=== PATIENT | female | born 1960 | race Caucasian/White ===

== ENCOUNTER → 2016-12-30 | Outpatient (CLI) | payer MEDICARE ==
[2016-12-30 12:47] LABS: ALT 29 U/L (9-52); AST 33 U/L (14-36); Alkaline Phosphatase 169 U/L (38-126); Anion Gap 15 mmol/L; Blood Urea Nitrogen 25 mg/dL (7-17); Calcium 10.1 mg/dL (8.4-10.2); Carbon Dioxide 19 mmol/L (22-30); Chloride 104 mmol/L (98-107); Glucose 87 mg/dL (74-99); Non-African American GFR(MDRD) >60 (>60 ml/min/1.73 sqM); Potassium 4.9 mmol/L (3.5-5.1); Sodium 138 mmol/L (137-145); Total Bilirubin 1.1 mg/dL (0.2-1.3); Total Protein 8.1 g/dL (6.3-8.2)
--- NOTE | 2016-12-31 10:09 | MM ---
Reason for exam: screening (asymptomatic). Last mammogram was performed 1 year and 1 month ago. History: Patient is postmenopausal and has history of other cancer at age 53. Physical Findings: A clinical breast exam by your physician is recommended on an annual basis and results should be correlated with mammographic findings. MG 3D Screening Mammo W/Cad Bilateral CC and MLO view(s) were taken. Prior study comparison: December 03, 2015, bilateral MG 3d screening mammo w/cad. August 09, 2014, bilateral MG screening mammo w CAD. The breast tissue is heterogeneously dense. This may lower the sensitivity of mammography. Finding: There is a 4 mm round mass in the upper outer quadrant, anterior position of the right breast. There is a chronic nodularity in the left breast that has decreased in size. There is no discrete abnormality. New finding since December 03, 2015. ASSESSMENT: Incomplete: need additional imaging evaluation, BI-RAD 0 RECOMMENDATION: Ultrasound of the right breast. [facility] will attempt to contact patient to return for ultrasound.
== END | disposition home or self-care (01) ==
LOC: RADMAMWWP 11:44
PROVIDERS: ATTEND Family Medicine
DX: Z12.31 Encounter for screening mammogram for malignant neoplasm of breast (principal); E87.6 Hypokalemia; R73.09 Other abnormal glucose
CPT/HCPCS: 86316; 80053; 77063; G0202

== ENCOUNTER → 2017-01-08 | Outpatient (CLI) | payer MEDICARE ==
--- NOTE | 2017-01-08 09:32 | USB ---
Reason for exam: additional evaluation requested from abnormal screening. History: Patient is postmenopausal and has history of other cancer at age 53. Physical Findings: Nurse did not find any significant physical abnormalities on exam. US Breast Workup Limited RT Right breast ultrasound demonstrates a 4mm oval, cystic lesion at 11 o'clock. These results were verbally communicated with the patient and result sheet given to the patient on 01/08/17. ASSESSMENT: Benign, BI-RAD 2 RECOMMENDATION: Return to routine screening mammogram schedule for both breasts.
== END | disposition home or self-care (01) ==
LOC: RADUSWWP 08:00
PROVIDERS: ATTEND Family Medicine
DX: R92.8 Other abnormal and inconclusive findings on diagnostic imaging of breast (principal)

== ENCOUNTER 2017-01-15 05:53 | Inpatient (IN) | payer MEDICARE ==
[2017-01-15 07:30] VITALS: RESP 18
[2017-01-15] MEDS ORDERED: SODIUM CHLORIDE 0.9% 1,000 ML IV ONE (07:31)
[2017-01-15] MEDS ORDERED: HYDROmorphone 1 MG/ML 1 ML SYRINGE ONE (07:54)
[2017-01-15] MEDS ORDERED: HYDROmorphone 1 MG/ML 1 ML SYRINGE IVP STA (07:59)
[2017-01-15] MEDS ORDERED: ATORVASTATIN 80 MG TAB PO STA (08:03)
[2017-01-15] MEDS ORDERED: ASPIRIN 325 MG TAB PO STA (08:03)
[2017-01-15] MEDS ORDERED: NITROGLYCERIN SL TABS 0.4 MG TAB SUBLINGUAL PRN (08:03)
[2017-01-15] MEDS ORDERED: ALPRAZolam 0.5 MG TAB PO PRN (08:03)
[2017-01-15] MEDS ORDERED: ALPRAZolam 0.25 MG TAB PO PRN (08:03)
[2017-01-15] MEDS ORDERED: MIDAZOLAM 2 MG/2 ML VIAL IVP ONE (08:22)
[2017-01-15] MEDS: LIDOCAINE 2% INJ 20 MG/ML SQ ONE ×2 (08:33→08:38)
[2017-01-15] MEDS ORDERED: VERAPAMIL SYRINGE (5 MG/10 ML) INTRAARTER ONE (08:35)
[2017-01-15] MEDS ORDERED: RX INFO: IV CONTRAST WAS GIVEN 1 EACH MISC MISCELLANE PRN (08:53)
[2017-01-15] MEDS ORDERED: IOHEXOL 350 MG/ML 100 ML BOTTLE INJ ONE (08:55)
[2017-01-15] MEDS ORDERED: SODIUM CHLORIDE 0.9% 1,000 ML IV SCH (09:00)
--- NOTE | 2017-01-15 09:15 | LTR ---
January 15, 2017 VARGHESE IRBY MD RE: Alysha Marie Dear Rony: Ms. Alysha Marie underwent a heart catheterization, which showed normal coronary angiogram. I want to thank you for allowing us to participate in her care and please do not hesitate to call if you have any questions or concerns. Sincerely, NARCISO PRATHER MD
--- NOTE | 2017-01-15 09:27 | CC ---
DATE OF SERVICE: 01/15/2017 PERFORMING PHYSICIAN: Ashutosh Brown M.D., Junior Graphic Designer. PROCEDURE PERFORMED: 1. Selective right and left coronary angiogram. 2. Left heart catheterization. INDICATION: This is a pleasant 56-year-old female who has hypertension and Crohn's disease, who presented to the hospital with shortness of breath and she was ruled in for acute non-ST elevation myocardial infarction which she underwent. She was transferred to for heart catheterization. APPROACH: 1. Right radial artery. 2. Right common femoral artery. COMPLICATIONS: None. LEVEL OF SEDATION: Moderate with a sedation length of 30 minutes. PROCEDURE DESCRIPTION: After obtaining informed consent, the patient was to the Cardiac Final [employer]. Initially, the right radial artery was cannulated using micropuncture technique. The micropuncture wire passed easily, then I advanced a 6 [place] sheath in the right radial artery. I was unable to advance the sheath all the way to the hub because the patient was having severe pain, which is likely because of severe spasm and small diameter artery. At that point, I decided to abort the radial axis and go from the right common femoral artery. So, the right common femoral artery was cannulated using micropuncture technique. The micropuncture wire passed easily, then I placed 6 [place] sheath in the right common femoral artery. Subsequently, I did selective right and left coronary angiogram using JR4 and JL 3.5 catheters. Then I did left heart catheterization using a 6 [place] pigtail catheter. The procedure was completed without any complication. SELECTIVE CORONARY ANGIOGRAM: 1. The right coronary artery is a large-caliber vessel and it is a dominant vessel and it is angiographically normal. It bifurcates into PDA and PLV branches; both are angiographically normal. 2. The left main is angiographically normal. It bifurcates into the left circumflex, ramus intermedius, and left anterior descending artery. The left circumflex is a large-caliber vessel and it is a nondominant vessel and is angiographically normal. 3. The ramus intermedius is a small to medium caliber vessel and seems to be angiographically normal. 4. The left anterior descending artery: The proximal LAD is angiographically normal. The mid LAD is normal and gives rise into a large diagonal branch, which seems to be angiographically normal and the LAD continues as a small to medium caliber vessel after that. HEMODYNAMICS: The left ventricular end-diastolic pressure was 4 mmHg and no gradient was identified across the aortic valve. CONCLUSION: 1. Normal coronary angiogram. 2. Normal left ventricular end-diastolic pressure. POSTPROCEDURE MANAGEMENT: Medical treatment.
[2017-01-15] MEDS: SODIUM CHLORIDE 0.9% 1,000 ML in EMPTY BAG 1 BAG IV ONE ×2 (10:46→10:47)
[2017-01-15] MEDS ORDERED: METOPROLOL SUCCINATE (ER) 50 MG TAB.ER.24H PO SCH (11:30)
[2017-01-15] MEDS ORDERED: HYDROcodone/APAP 7.5-325MG 1 EACH TAB PO PRN (11:46)
[2017-01-15] MEDS ORDERED: TAMSULOSIN 0.4 MG CAP.ER.24H PO SCH (12:00)
--- NOTE | 2017-01-15 13:36 | P.HPIM ---
History of Present Illness H&P Date: 01/15/17 Chief Complaint: Kidney pain HISTORY AND PHYSICAL AND DISCHARGE SUMMARY: This is a 56-year-old female patient of Dr. Rony Benitez with a past medical history for Crohn's disease status post ileostomy, hypertension, umbilical hernia. She presented to [facility] with severe recurrent low back pain and vomiting. She was found have elevated troponins and elevated lactate and patient was admitted since Thursday at [facility]. She was seen in consultation by cardiology and patient was transferred to [facility] to undergo heart catheterization. While at [facility], she was found have kidney stone [place] in for the back pain. She states she has had kidney stones before and she becomes dehydrated and makes it worse. She states she has had 4 admissions since May for the same thing. Regarding Crohn's disease, patient was on Remicade in the past and has undergone 4 surgeries with a total removal of 20 inches of small intestine and a small amount of the large intestine all done at [facility]. Patient is now on Humira. She does have plans to follow-up in February [address] Burciaga at [facility] to look at reversal of the ileostomy. Patient underwent heart catheterization initially attempted the right radial artery and then completed and the right femoral artery which did not show any significant stenosis. Patient will be discharged home later today in stable condition. Review of Systems All systems: negative Constitutional: Denies chills, Denies fever Eyes: denies blurred vision, denies pain Ears, nose, mouth and throat: Denies headache, Denies sore throat Cardiovascular: Denies chest pain, Denies shortness of breath Respiratory: Denies cough Gastrointestinal: Reports nausea, Reports vomiting, Denies abdominal pain, Denies diarrhea Genitourinary: Reports kidney stones, Denies dysuria, Denies hematuria Musculoskeletal: Reports low back pain, Denies myalgias Integumentary: Denies pruritus, Denies rash Neurological: Denies numbness, Denies weakness Psychiatric: Denies anxiety, Denies depression Endocrine: Denies fatigue, Denies weight change Past Medical History Past Medical History: GERD/Reflux, Hypertension, Pneumonia, Renal Disease, Seizure Disorder Additional Past Medical History / Comment(s): Crohn's disease-autoimmune dx, hx of epilepsy as a child, nothing now, L side nephrolithiasis-current, chronic low back pain, umbilical hernias x 2. History of Any Multi-Drug Resistant Organisms: None Reported Past Surgical History: Appendectomy, Bowel Resection, Section, Cholecystectomy, Heart Catheterization Additional Past Surgical History / Comment(s): 01/15/17 Cardiac cath-normal. Other surgical hx: bowel resections x 4, egds and colonoscopies, ileostomy, L cataract removal Past Anesthesia/Blood Transfusion Reactions: No Reported Reaction Past Psychological History: No Psychological Hx Reported, Depression Additional Psychological History / Comment(s): Pt resides with her spouse. She is independent. Smoking Status: Never smoker Past Alcohol Use History: None Reported Additional Past Alcohol Use History / Comment(s): Patient denies history of tobacco use. She does not drink alcohol. She's been for over 30 years. She has worked in a grocery store. Past Drug Use History: Marijuana Additional Drug Use History / Comment(s): Pt has medical marijuana. She smokes 2 joints a day. - Past Family History Father Family Medical History: Cancer Additional Family Medical History / Comment(s): Father in his 70s and had 4 types of cancer. Brother(s) Family Medical History: Diabetes Mellitus, Hypertension Sister(s) Family Medical History: Diabetes Mellitus, Hypertension Additional Family Medical History / Comment(s): She has a sister that from Hodgkin's. Mother Additional Family Medical History / Comment(s): Mother has history of peripheral artery disease. Medications and Allergies Home Medications Medication Instructions Recorded Confirmed Type Metoprolol Succinate (ER) [Toprol 50 mg PO DAILY 06/29/16 01/15/17 History XL] Adalimumab [Humira Pen] 80 mg SQ [id number] 01/15/17 01/15/17 History Ascorbic Acid [Vitamin C] 1,000 mg PO DAILY 01/15/17 01/15/17 History Curcumin 1 cap PO DAILY 01/15/17 01/15/17 History Qvar (Unknown Dose) 1 puff TOPICAL DIRECTED PRN 01/15/17 History Vitamin D3 Liquid 5,000 unit PO DAILY 01/15/17 01/15/17 History Vitamin E 1,000 unit PO DAILY 01/15/17 01/15/17 History Allergies Allergy/AdvReac Type Severity Reaction Status Date / Time latex AdvReac Unknown Itching Verified 06/29/16 13:08 Physical Exam Vitals: Vital Signs Temp Pulse Pulse Resp BP BP Pulse Ox 01/15/17 10:40 81 18 115/58 97 01/15/17 10:25 78 18 120/67 97 01/15/17 10:10 80 18 123/74 97 01/15/17 09:45 76 18 135/73 98 01/15/17 09:30 98.0 F 78 18 133/73 98 01/15/17 07:28 98.0 F 79 18 136/78 144/79 98 Intake and Output 01/14/17 01/15/17 01/15/17 22:59 06:59 14:59 Intake Total 50 Balance 50 Intake: IV 50 Other: Weight 50.802 kg Patient Weight 01/16/17 06:59 Weight 50.802 kg Gen: This is a 56-year-old female. She appears to be in no acute distress. HEENT: Head is atraumatic, normocephalic. Pupils equal, round. Sclerae is anicteric. NECK: Supple. No JVD. No lymphadenopathy. No thyromegaly. LUNGS: Clear to auscultation. No wheezes or rhonchi. No intercostal retractions. HEART: Regular rate and rhythm. No murmur. ABDOMEN: Soft. Bowel sounds are present. No masses. No tenderness. Ileostomy right lower quadrant. EXTREMITIES: No pedal edema. No calf tenderness. Right groin without hematoma. NEUROLOGICAL: Patient is awake, alert and oriented x3. Cranial nerves 2 through 12 are grossly intact. Assessment and Plan Plan: 1. Non-ST elevated myocardial infarction with normal heart catheterization. 2. Crohn's disease and history of ileostomy with plan for reversal. Patient is on chronic Humira. 3. Chronic kidney disease stage III. 4. Daily marijuana use, stable. 5. Hypertension. Continue metoprolol. Discharge plan: Return home. Impression and plan of care have been directed as dictated by the signing physician. Stacey Merino nurse practitioner acting as scribe for signing physician. Cc: Dr. Jeff Benitez Time with Patient: Greater than 30
[2017-01-15 13:55] LABS: Anion Gap 13 mmol/L; Blood Urea Nitrogen 25 mg/dL (7-17); Calcium 9.6 mg/dL (8.4-10.2); Carbon Dioxide 27 mmol/L (22-30); Chloride 97 mmol/L (98-107); Glucose 148 mg/dL (74-99); Non-African American GFR(MDRD) >60 (>60 ml/min/1.73 sqM); Potassium 4.1 mmol/L (3.5-5.1); Sodium 137 mmol/L (137-145)
[2017-01-15 16:09] VITALS: BP 128/85; PULSE 78; TEMP 98.5
[2017-01-16] MEDS ORDERED: NON-FORMULARY DRUG (Vitamin E [Vitamin E] 1,000 UNIT) PO SCH (09:00)
[2017-01-16] MEDS ORDERED: ASCORBIC ACID 500 MG TAB PO SCH (12:00)
[2017-01-16] MEDS ORDERED: CHOLECALCIFEROL 1,000 UNIT TAB PO SCH (12:00)
== END 2017-01-15 16:27 | disposition home or self-care (01) | DRG 281 ==
LOC: 6SEL 07:37
PROVIDERS: ADMIT Internal Medicine; ATTEND Internal Medicine
PROC: B2111ZZ Fluoroscopy of Multiple Coronary Arteries using Low Osmolar Contrast (ICD-10-PCS; 2017-01-15)
PROC: 4A023N7 Measurement of Cardiac Sampling and Pressure, Left Heart, Percutaneous Approach (ICD-10-PCS; principal; 2017-01-15 08:00)
DX: I21.4 Non-ST elevation (NSTEMI) myocardial infarction (principal); K50.90 Crohn's disease, unspecified, without complications; N18.3 Chronic kidney disease, stage 3 (moderate); I12.9 Hypertensive chronic kidney disease with stage 1 through stage 4 chronic kidney disease, or unspecified chronic kidney disease; Z93.2 Ileostomy status; N20.0 Calculus of kidney; F12.90 Cannabis use, unspecified, uncomplicated; K21.9 Gastro-esophageal reflux disease without esophagitis; G40.909 Epilepsy, unspecified, not intractable, without status epilepticus; Z79.899 Other long term (current) drug therapy; Z82.49 Family history of ischemic heart disease and other diseases of the circulatory system
CPT/HCPCS: 80048; 93458

== ENCOUNTER 2017-06-01 04:35 | Emergency (ER) | payer MEDICARE ==
[2017-06-01] MEDS ORDERED: ONDANSETRON 4 MG/2 ML VIAL IVP STA (05:07)
[2017-06-01] MEDS ORDERED: SODIUM CHLORIDE 0.9% 1,000 ML IV STA (05:07)
[2017-06-01] MEDS ORDERED: MORPHINE SULFATE 4 MG/ML SYRINGE IV STA (05:07)
[2017-06-01] MEDS ORDERED: HYDROmorphone 1 MG/ML 1 ML SYRINGE IVP STA ×2 (05:09→06:46)
[2017-06-01 05:17] LABS: Basophils # (A) 0.1 k/uL (0-0.2); Basophils % (A) 0 %; CH 28.5; CHCM 32.4; Eosinophils # (A) 0.1 k/uL (0-0.7); Eosinophils % (A) 0 %; HCT 46.5 % (34.0-46.0); HDW 2.39; HGB 15.4 gm/dL (11.4-16.0); Luc % (Auto) 1; Lymphocytes # (A) 1.3 k/uL (1.0-4.8); Lymphocytes % (A) 8 %; MCH 29.3 pg (25.0-35.0); MCHC 33.1 g/dL (31.0-37.0); MCV 88.5 fL (80.0-100.0); Mean Platelet Volume 7.8; Monocytes # (A) 0.7 k/uL (0-1.0); Monocytes % (A) 4 %; Neutrophils # (A) 14.6 k/uL (1.3-7.7); Neutrophils % (A) 86 %; RBC 5.26 m/uL (3.80-5.40); RDW 14.3 % (11.5-15.5); WBC 16.9 k/uL (3.8-10.6)
[2017-06-01 05:28] LABS: ALT 35 U/L (9-52); AST 43 U/L (14-36); Alkaline Phosphatase 235 U/L (38-126); Amylase 275 U/L (30-110); Anion Gap 24 mmol/L; Blood Urea Nitrogen 16 mg/dL (7-17); Calcium 10.6 mg/dL (8.4-10.2); Carbon Dioxide 17 mmol/L (22-30); Chloride 104 mmol/L (98-107); Glucose 225 mg/dL (74-99); Non-African American GFR(MDRD) >60 (>60 ml/min/1.73 sqM); Sodium 145 mmol/L (137-145); Total Bilirubin 1.4 mg/dL (0.2-1.3); Total Protein 9.3 g/dL (6.3-8.2)
--- NOTE | 2017-06-01 05:38 | XR ---
EXAM: XR Abdomen Complete With XR Chest CLINICAL HISTORY: Reason: Abdominal pain, nausea/vomiting. History of Crohn's disease, bowel resections, ileostomy, kidney stones in left kidney. TECHNIQUE: Frontal view of the chest, frontal view of the abdomen/pelvis and upright view of the abdomen. COMPARISON: 06/29/2016 FINDINGS: Lungs/pleura: Stable probable mild right pleural thickening in the costophrenic angle. Similar mild scarring at right lung base. No focal consolidation. No pneumothorax. Heart/mediastinum: Normal. No cardiomegaly. Soft tissues: Unremarkable. Bones: No acute fracture. Abdomen: Cholecystectomy clips in the right upper quadrant. Stable calcifications in the region of the left kidney which likely represents renal stones. Paucity of bowel gas. No abnormal gaseous dilatation of bowel to suggest obstruction. No free air. IMPRESSION: 1. No acute cardiopulmonary disease. 2. No evidence of bowel obstruction or free air. 3. Stable left nephrolithiasis.
[2017-06-01 06:10] VITALS: RESP 16
--- NOTE | 2017-06-01 06:11 | ED ---
General Adult HPI - General Chief complaint: Nausea/Vomiting/Diarrhea Stated complaint: FEVER? Time Seen by Provider: 06/01/17 05:01 Source: patient, family, RN notes reviewed Mode of arrival: wheelchair Limitations: no limitations - History of Present Illness Initial comments: 56-year-old female with past medical history of Crohn's, currently on Humira presenting with 1 day history of generalized crampy abdominal pain. Patient reports she had 5 episodes of nausea vomiting throughout the day today as well as 2 episodes of diarrhea. Patient states his subjective fever. Denies dysuria. Denies chest pain or shortness of breath. Patient is not currently on any pain medication. She had a bowel resection with ileostomy performed within the last year, this was reversed in February of this year. She has been doing well since his surgery. - Related Data Home Medications Medication Instructions Recorded Confirmed Metoprolol Succinate (ER) [Toprol 50 mg PO DAILY 06/29/16 04/24/17 XL] Adalimumab [Humira Pen] 80 mg SQ [id number] 01/15/17 04/24/17 Ascorbic Acid [Vitamin C] 1,000 mg PO DAILY 01/15/17 04/24/17 Curcumin 1 cap PO DAILY 01/15/17 04/24/17 Qvar (Unknown Dose) 1 puff TOPICAL DIRECTED PRN 01/15/17 04/24/17 Vitamin D3 Liquid 5,000 unit PO DAILY 01/15/17 04/24/17 Vitamin E 1,000 unit PO DAILY 01/15/17 04/24/17 Previous Rx's Medication Instructions Recorded HYDROcodone/APAP 7.5-325MG [[place] 1 tab PO Q4H PRN #60 tab 01/15/17 7.5-325] Tamsulosin [Flomax] 0.4 mg PO DAILY #30 cap 01/15/17 HYDROcodone/APAP 5-325MG [[place] 1 tab PO Q6HR PRN #12 tab 06/01/17 5-325] Ondansetron Odt [Zofran Odt] 4 mg PO Q8HR PRN #10 tab 06/01/17 Allergies Allergy/AdvReac Type Severity Reaction Status Date / Time latex AdvReac Unknown Itching Verified 06/01/17 04:45 Review of Systems ROS Statement: Those systems with pertinent positive or pertinent negative responses have been documented in the HPI. ROS Other: All systems not noted in ROS Statement are negative. Past Medical History Past Medical History: GERD/Reflux, Hypertension, Pneumonia, Renal Disease, Seizure Disorder Additional Past Medical History / Comment(s): Crohn's disease-autoimmune dx, hx of epilepsy as a child, nothing now, L side nephrolithiasis-current, chronic low back pain, umbilical hernias x 2. History of Any Multi-Drug Resistant Organisms: None Reported Past Surgical History: Appendectomy, Bowel Resection, Section, Cholecystectomy, Heart Catheterization Additional Past Surgical History / Comment(s): 01/15/17 Cardiac cath-normal. Other surgical hx: bowel resections x 4, egds and colonoscopies, ileostomy, L cataract removal Past Anesthesia/Blood Transfusion Reactions: No Reported Reaction Past Psychological History: No Psychological Hx Reported, Depression Smoking Status: Former smoker - Past Family History Mother Additional Family Medical History / Comment(s): Mother has history of peripheral artery disease. Father Family Medical History: Cancer Additional Family Medical History / Comment(s): Father in his 70s and had 4 types of cancer. Brother(s) Family Medical History: Diabetes Mellitus, Hypertension Sister(s) Family Medical History: Diabetes Mellitus, Hypertension Additional Family Medical History / Comment(s): She has a sister that from Hodgkin's. General Exam Limitations: no limitations General appearance: alert, in distress Head exam: Present: atraumatic, normocephalic Eye exam: Present: normal appearance, PERRL, EOMI ENT exam: Present: normal exam, mucous membranes dry Neck exam: Present: normal inspection, full ROM. Absent: meningismus Respiratory exam: Present: normal lung sounds bilaterally. Absent: respiratory distress Cardiovascular Exam: Present: normal rhythm, tachycardia GI/Abdominal exam: Present: soft, normal bowel sounds. Absent: distended, tenderness, guarding, rebound, rigid Extremities exam: Present: normal inspection, normal capillary refill. Absent: pedal edema Neurological exam: Present: alert, oriented X3, CN II-XII intact. Absent: motor sensory deficit Psychiatric exam: Present: normal affect, normal mood Skin exam: Present: warm, dry. Absent: cyanosis, diaphoretic Course Vital Signs 06/01/17 06/01/17 06/01/17 04:42 06:10 06:32 Temperature 98.7 F 97.8 F Pulse Rate 126 H 80 102 H Respiratory 24 16 16 Rate Blood Pressure 190/104 149/70 124/59 O2 Sat by Pulse 98 98 97 Oximetry - Reevaluation(s) Reevaluation #1: 06/01/17 06:08 On reevaluation, the patient is resting comfortably, heart rate improved to mid 90s, patient is pain-free. She's had no episodes of vomiting in the emergency department. Medical Decision Making - Medical Decision Making 56-year-old female with past medical history of Crohn's, status post bowel resection, ileostomy and reversal presenting with 1 day history of abdominal pain, nausea vomiting and diarrhea. Patient is not currently on any pain medication for her Crohn's. No concern for opiate withdrawal. Patient's pain is crampy in nature, examination reveals abdomen is soft, nontender nondistended. X-rays obtained to evaluate for obstruction, or intraperitoneal air, this is negative study. Laboratory studies do reveal an elevated white blood cell count which is likely reactive. Mild hypercalcemia, alk phos is mildly elevated, however the patient has had her gallbladder removed. Lipase is normal. Urinalysis is positive for ketones, and 91 hyalin casts consistent with dehydration. There is also 13 white blood cell count in the urine, but patient denies any dysuria. On reevaluation patient is completely pain-free, abdomen is soft nontender. Vital signs have improved blood pressure 120/60. Heart rate has normalized after 2 L. Patient is here to be discharged, she feels that this was all just related to dehydration. She will be able to follow up with her primary physician in the next several days. Diagnosis: Nausea vomiting diarrhea, dehydration - Lab Data Result diagrams: 06/01/17 05:00 06/01/17 05:00 Lab Results 06/01/17 06/01/17 06/01/17 Range/Units 05:00 05:00 06:06 WBC 16.9 H (3.8-10.6) k/uL RBC 5.26 (3.80-5.40) m/uL Hgb 15.4 (11.4-16.0) gm/dL Hct 46.5 H (34.0-46.0) % MCV 88.5 (80.0-100.0) fL MCH 29.3 (25.0-35.0) pg MCHC 33.1 (31.0-37.0) g/dL RDW 14.3 (11.5-15.5) % Plt Count 388 (150-450) k/uL Neutrophils % 86 % Lymphocytes % 8 % Monocytes % 4 % Eosinophils % 0 % Basophils % 0 % Neutrophils # 14.6 H (1.3-7.7) k/uL Lymphocytes # 1.3 (1.0-4.8) k/uL Monocytes # 0.7 (0-1.0) k/uL Eosinophils # 0.1 (0-0.7) k/uL Basophils # 0.1 (0-0.2) k/uL Sodium 145 (137-145) mmol/L Potassium 4.0 (3.5-5.1) mmol/L Chloride 104 (98-107) mmol/L Carbon Dioxide 17 L (22-30) mmol/L Anion Gap 24 mmol/L BUN 16 (7-17) mg/dL Creatinine 0.85 (0.52-1.04) mg/dL Est GFR (MDRD) Af Amer >60 (>60 ml/min/1.73 sqM) Est GFR (MDRD) Non-Af >60 (>60 ml/min/1.73 sqM) Glucose 225 H (74-99) mg/dL Calcium 10.6 H (8.4-10.2) mg/dL Total Bilirubin 1.4 H (0.2-1.3) mg/dL AST 43 H (14-36) U/L ALT 35 (9-52) U/L Alkaline Phosphatase 235 H (38-126) U/L Total Protein 9.3 H (6.3-8.2) g/dL Albumin 5.2 H (3.5-5.0) g/dL Amylase 275 H (30-110) U/L Lipase 65 (23-300) U/L Urine Color Yellow Urine Appearance Clear (Clear) Urine pH 6.0 (5.0-8.0) Ur Specific [place] 1.024 (1.001-1.035) Urine Protein 2+ H (Negative) Urine Glucose (UA) 1+ H (Negative) Urine Ketones 3+ H (Negative) Urine Blood Trace H (Negative) Urine Nitrite Negative (Negative) Urine Bilirubin Negative (Negative) Urine Urobilinogen <2.0 (<2.0) mg/dL Ur Leukocyte Esterase Trace H (Negative) Urine RBC 6 H (0-5) /hpf Urine WBC 13 H (0-5) /hpf Ur Squamous Epith Cells 2 (0-4) /hpf Hyaline Casts 91 H (0-2) /lpf Urine Mucus Rare H (None) /hpf Disposition Clinical Impression: Dehydration, Nausea and vomiting Disposition: HOME SELF-CARE Prescriptions: HYDROcodone/APAP 5-325MG [[place] 5-325] 1 tab PO Q6HR PRN #12 tab PRN Reason: Pain Ondansetron Odt [Zofran Odt] 4 mg PO Q8HR PRN #10 tab PRN Reason: Vomiting Referrals: Jeff Benitez MD [Primary Care Provider] - 1-2 days Time of Disposition: 06:37
[2017-06-01 06:23] LABS: Appearance,Urine Clear (Clear); Bilirubin,Urine Negative (Negative); Glucose,Urine (UA) 1+ (Negative); Leukocyte Esterase,Urine Trace (Negative); Mucus,Urine Rare /hpf; Nitrite,Urine Negative (Negative); Particle Count 3695; Protein,Urine 2+ (Negative); RBC,Urine 6 /hpf (0-5); Specific Gravity,Urine 1.024 (1.001-1.035); Squamous Epithelial Cell,Urine 2 /hpf (0-4); UA Billing (MACRO vs. MICRO) MICRO; Urobilinogen,Urine <2.0 mg/dL (<2.0); WBC,Urine 13 /hpf (0-5)
[2017-06-01 06:33] LABS: Ketones,Urine 3+ (Negative)
[2017-06-01 07:03] VITALS: BP 118/70; PULSE 94; TEMP 97.6
== END 2017-06-01 07:02 | disposition home or self-care (01) ==
LOC: EC 04:35
DX: E86.0 Dehydration (principal); R11.2 Nausea with vomiting, unspecified; R19.7 Diarrhea, unspecified; R10.84 Generalized abdominal pain; E83.52 Hypercalcemia; K50.90 Crohn's disease, unspecified, without complications; I10 Essential (primary) hypertension; Z90.49 Acquired absence of other specified parts of digestive tract; Z87.891 Personal history of nicotine dependence; Z79.899 Other long term (current) drug therapy; Z91.040 Latex allergy status
CPT/HCPCS: 36415; 80053; 82150; 83690; 85025; 81001; 74022; 99284; 96374; 96375; 96376; 96361 ×2; J2405; J1170

== ENCOUNTER 2017-07-13 08:54 | Emergency (ER) | payer MEDICARE ==
[2017-07-13 08:59] VITALS: BP 168/92; PULSE 118; RESP 16; TEMP 99.4
[2017-07-13] MEDS ORDERED: SODIUM CHLORIDE 0.9% 1,000 ML IV STA ×2 (09:17)
[2017-07-13] MEDS ORDERED: ONDANSETRON 4 MG/2 ML VIAL IVP STA (09:17)
[2017-07-13] MEDS ORDERED: LORazepam 2 MG/ML SYRINGE IV STA (09:17)
--- NOTE | 2017-07-13 09:49 | ED ---
General Adult HPI - General Chief complaint: Nausea/Vomiting/Diarrhea Stated complaint: vomiting Time Seen by Provider: 07/13/17 09:12 Source: patient, RN notes reviewed Mode of arrival: ambulatory Limitations: no limitations - History of Present Illness Initial comments: Patient 76-year-old female who presents emergency room today with chief complaint of dehydration. She states that she's had increased nausea vomiting over the last 2 days. She states for the last week she's been having some nausea vomiting the morning. She states last 2 days it's been throughout the day. She states increased vomiting this morning. Patient states she's been dehydrated in the past with symptoms like this was concerned and did not want to get any worse. She does admit to a ileostomy reversal approximately 4 months through [facility]. She states she has a history of Crohn's disease. She denies any other complaints or symptoms at this time. Patient denies any recent fever, chills, shortness of breath, chest pain, back pain, numbness or tingling, dysuria or hematuria, constipation or diarrhea, headaches or visual changes, or any other complaints. - Related Data Home Medications Medication Instructions Recorded Confirmed Metoprolol Succinate (ER) [Toprol 50 mg PO DAILY 06/29/16 07/13/17 XL] Adalimumab [Humira Pen] 80 mg SQ [id number] 01/15/17 07/13/17 Ascorbic Acid [Vitamin C] 1,000 mg PO DAILY 01/15/17 07/13/17 Curcumin 1 cap PO DAILY 01/15/17 07/13/17 Vitamin D3 Liquid 5,000 unit PO DAILY 01/15/17 07/13/17 Vitamin E 1,000 unit PO DAILY 01/15/17 07/13/17 Colestipol HCl 5 gm PO BID 07/13/17 07/13/17 Allergies Allergy/AdvReac Type Severity Reaction Status Date / Time latex AdvReac Unknown Itching Verified 07/13/17 10:19 Review of Systems ROS Statement: Those systems with pertinent positive or pertinent negative responses have been documented in the HPI. ROS Other: All systems not noted in ROS Statement are negative. Past Medical History Past Medical History: GERD/Reflux, Hyperlipidemia, Hypertension, Pneumonia, Renal Disease, Seizure Disorder Additional Past Medical History / Comment(s): Crohn's disease-autoimmune dx, hx of epilepsy as a child, nothing now, L side nephrolithiasis-current, chronic low back pain, umbilical hernias x 2. History of Any Multi-Drug Resistant Organisms: None Reported Past Surgical History: Appendectomy, Bowel Resection, Section, Cholecystectomy, Heart Catheterization Additional Past Surgical History / Comment(s): 01/15/17 Cardiac cath-normal. Other surgical hx: bowel resections x 4, egds and colonoscopies, ileostomy, L cataract removal Past Anesthesia/Blood Transfusion Reactions: No Reported Reaction Past Psychological History: No Psychological Hx Reported, Depression Smoking Status: Former smoker Past Alcohol Use History: None Reported Past Drug Use History: None Reported - Past Family History Mother Additional Family Medical History / Comment(s): Mother has history of peripheral artery disease. Father Family Medical History: Cancer Additional Family Medical History / Comment(s): Father in his 70s and had 4 types of cancer. Brother(s) Family Medical History: Diabetes Mellitus, Hypertension Sister(s) Family Medical History: Diabetes Mellitus, Hypertension Additional Family Medical History / Comment(s): She has a sister that from Hodgkin's. General Exam - General Exam Comments Initial Comments: General: The patient is awake and alert, in no distress, and does not appear acutely ill. Eye: Pupils are equal, round and reactive to light, extra-ocular movements are intact. No nystagmus. There is normal conjunctiva bilaterally. No signs of icterus. Ears, nose, mouth and throat: There are moist mucous membranes and no oral lesions. Neck: The neck is supple, there is no tenderness or JVD. Cardiovascular: There is a regular rate and rhythm. No murmur, rub or gallop is appreciated. Respiratory: Lungs are clear to auscultation, respirations are non-labored, breath sounds are equal. No wheezes, stridor, rales, or rhonchi. Gastrointestinal: Soft, non-distended, non-tender abdomen without masses or organomegaly noted. There is no rebound or guarding present. No CVA tenderness. Bowel sounds are unremarkable. Musculoskeletal: Normal ROM, no tenderness. Strength 5/5. Sensation intact. Pulses equal bilaterally 2+. Neurological: A&O x 3. CN II-XII intact, There are no obvious motor or sensory deficits. Coordination appears grossly intact. Speech is normal. Skin: Skin is warm and dry and no rashes or lesions are noted. Psychiatric: Cooperative, appropriate mood & affect, normal judgment. Limitations: no limitations Course Vital Signs 07/13/17 08:55 Temperature 99.4 F Pulse Rate 118 H Respiratory 16 Rate Blood Pressure 168/92 O2 Sat by Pulse 95 Oximetry Medical Decision Making - Medical Decision Making Case discussed in detail with attending physician Patient reexamined at this time shows no signs of distress resting comfortably. Patient has requested from nursing staff and pain medication of Dilaudid at this time. I went into the room patient was sleeping. I had to wake her up. She states she is experiencing some cramping. She states is consistent with dehydration type symptoms that she's had in the past. She states it usually takes 1 dose of Dilaudid to break the cycle. Patient labs been reviewed. Does show 14,000 white count. Does show an elevated lactic acid 4.8. Patient does admit to a ileostomy reversal back in February of this year. Her abdomen is soft on palpation. It was discussed about the possibility of an infection. Options of CT were discussed and was strongly recommended to the patient with multiple conversations. At this time patient states that she knows her body. She does not want have CAT scan obtained. She would like pain medication. She does admit to feeling better after fluids. Her urinalysis also reviewed showing 16 white cells. Patient denies any UTI symptoms. Patient will sign out AMA. She strongly advised follow-up with her surgeon tomorrow. Advised return if symptoms increase or worsen. - Lab Data Result diagrams: 07/13/17 09:35 07/13/17 09:35 Lab Results 07/13/17 07/13/17 07/13/17 Range/Units 09:35 09:35 09:35 WBC 14.3 H (3.8-10.6) k/uL RBC 5.37 (3.80-5.40) m/uL Hgb 15.4 (11.4-16.0) gm/dL Hct 47.3 H (34.0-46.0) % MCV 88.1 (80.0-100.0) fL MCH 28.7 (25.0-35.0) pg MCHC 32.5 (31.0-37.0) g/dL RDW 15.9 H (11.5-15.5) % Plt Count 304 (150-450) k/uL Neutrophils % 85 % Lymphocytes % 8 % Monocytes % 5 % Eosinophils % 0 % Basophils % 1 % Neutrophils # 12.2 H (1.3-7.7) k/uL Lymphocytes # 1.1 (1.0-4.8) k/uL Monocytes # 0.7 (0-1.0) k/uL Eosinophils # 0.1 (0-0.7) k/uL Basophils # 0.1 (0-0.2) k/uL Sodium 145 (137-145) mmol/L Potassium 4.3 (3.5-5.1) mmol/L Chloride 106 (98-107) mmol/L Carbon Dioxide 19 L (22-30) mmol/L Anion Gap 20 mmol/L BUN 15 (7-17) mg/dL Creatinine 0.70 (0.52-1.04) mg/dL Est GFR (MDRD) Af Amer >60 (>60 ml/min/1.73 sqM) Est GFR (MDRD) Non-Af >60 (>60 ml/min/1.73 sqM) Glucose 147 H (74-99) mg/dL Plasma Lactic Acid David 4.8 H* (0.7-2.0) mmol/L Calcium 10.8 H (8.4-10.2) mg/dL Total Bilirubin 1.6 H (0.2-1.3) mg/dL AST 36 (14-36) U/L ALT 41 (9-52) U/L Alkaline Phosphatase 223 H (38-126) U/L Total Protein 8.6 H (6.3-8.2) g/dL Albumin 5.0 (3.5-5.0) g/dL Amylase 138 H (30-110) U/L Lipase 70 (23-300) U/L Urine Color Urine Appearance (Clear) Urine pH (5.0-8.0) Ur Specific [place] (1.001-1.035) Urine Protein (Negative) Urine Glucose (UA) (Negative) Urine Ketones (Negative) Urine Blood (Negative) Urine Nitrite (Negative) Urine Bilirubin (Negative) Urine Urobilinogen (<2.0) mg/dL Ur Leukocyte Esterase (Negative) Urine RBC (0-5) /hpf Urine WBC (0-5) /hpf Ur Squamous Epith Cells (0-4) /hpf Urine Bacteria (None) /hpf Hyaline Casts (0-2) /lpf Urine Mucus (None) /hpf 07/13/17 Range/Units 09:35 WBC (3.8-10.6) k/uL RBC (3.80-5.40) m/uL Hgb (11.4-16.0) gm/dL Hct (34.0-46.0) % MCV (80.0-100.0) fL MCH (25.0-35.0) pg MCHC (31.0-37.0) g/dL RDW (11.5-15.5) % Plt Count (150-450) k/uL Neutrophils % % Lymphocytes % % Monocytes % % Eosinophils % % Basophils % % Neutrophils # (1.3-7.7) k/uL Lymphocytes # (1.0-4.8) k/uL Monocytes # (0-1.0) k/uL Eosinophils # (0-0.7) k/uL Basophils # (0-0.2) k/uL Sodium (137-145) mmol/L Potassium (3.5-5.1) mmol/L Chloride (98-107) mmol/L Carbon Dioxide (22-30) mmol/L Anion Gap mmol/L BUN (7-17) mg/dL Creatinine (0.52-1.04) mg/dL Est GFR (MDRD) Af Amer (>60 ml/min/1.73 sqM) Est GFR (MDRD) Non-Af (>60 ml/min/1.73 sqM) Glucose (74-99) mg/dL Plasma Lactic Acid David (0.7-2.0) mmol/L Calcium (8.4-10.2) mg/dL Total Bilirubin (0.2-1.3) mg/dL AST (14-36) U/L ALT (9-52) U/L Alkaline Phosphatase (38-126) U/L Total Protein (6.3-8.2) g/dL Albumin (3.5-5.0) g/dL Amylase (30-110) U/L Lipase (23-300) U/L Urine Color Yellow Urine Appearance Clear (Clear) Urine pH 5.5 (5.0-8.0) Ur Specific [place] 1.027 (1.001-1.035) Urine Protein 2+ H (Negative) Urine Glucose (UA) Negative (Negative) Urine Ketones 3+ H (Negative) Urine Blood Negative (Negative) Urine Nitrite Negative (Negative) Urine Bilirubin Negative (Negative) Urine Urobilinogen <2.0 (<2.0) mg/dL Ur Leukocyte Esterase Small H (Negative) Urine RBC 3 (0-5) /hpf Urine WBC 17 H (0-5) /hpf Ur Squamous Epith Cells 4 (0-4) /hpf Urine Bacteria Rare H (None) /hpf Hyaline Casts 3 H (0-2) /lpf Urine Mucus Rare H (None) /hpf Disposition Clinical Impression: Abdominal pain Disposition: Left Against Medical Advice Condition: Undetermined Instructions: Abdominal Pain (ED) Additional Instructions: Please follow-up with your surgeon tomorrow. Please return to emergency room if any symptoms increase or worsen or for any other concerns. Referrals: Jeff Benitez MD [Primary Care Provider] - 1-2 days Time of Disposition: 11:14
[2017-07-13 09:57] LABS: Basophils # (A) 0.1 k/uL (0-0.2); Basophils % (A) 1 %; CH 30.5; CHCM 34.8; Eosinophils # (A) 0.1 k/uL (0-0.7); Eosinophils % (A) 0 %; HCT 47.3 % (34.0-46.0); HDW 2.33; HGB 15.4 gm/dL (11.4-16.0); Luc # (Auto) 0.18; Luc % (Auto) 1; Lymphocytes # (A) 1.1 k/uL (1.0-4.8); Lymphocytes % (A) 8 %; MCH 28.7 pg (25.0-35.0); MCHC 32.5 g/dL (31.0-37.0); MCV 88.1 fL (80.0-100.0); Mean Platelet Volume 8.3; Monocytes # (A) 0.7 k/uL (0-1.0); Monocytes % (A) 5 %; Neutrophils # (A) 12.2 k/uL (1.3-7.7); Neutrophils % (A) 85 %; RBC 5.37 m/uL (3.80-5.40); RDW 15.9 % (11.5-15.5); WBC 14.3 k/uL (3.8-10.6); WBC (Perox) 13.85
[2017-07-13 09:59] LABS: Appearance,Urine Clear (Clear); Bacteria,Urine Rare /hpf; Bilirubin,Urine Negative (Negative); Glucose,Urine (UA) Negative (Negative); Ketones,Urine 3+ (Negative); Leukocyte Esterase,Urine Small (Negative); Mucus,Urine Rare /hpf; Nitrite,Urine Negative (Negative); PH, Urine 5.5 (5.0-8.0); Particle Count 3164; Protein,Urine 2+ (Negative); RBC,Urine 3 /hpf (0-5); Specific Gravity,Urine 1.027 (1.001-1.035); Squamous Epithelial Cell,Urine 4 /hpf (0-4); UA Billing (MACRO vs. MICRO) MICRO; Urobilinogen,Urine <2.0 mg/dL (<2.0); WBC,Urine 17 /hpf (0-5)
[2017-07-13 10:06] LABS: ALT 41 U/L (9-52); AST 36 U/L (14-36); Alkaline Phosphatase 223 U/L (38-126); Amylase 138 U/L (30-110); Anion Gap 20 mmol/L; Blood Urea Nitrogen 15 mg/dL (7-17); Calcium 10.8 mg/dL (8.4-10.2); Carbon Dioxide 19 mmol/L (22-30); Chloride 106 mmol/L (98-107); Glucose 147 mg/dL (74-99); Non-African American GFR(MDRD) >60 (>60 ml/min/1.73 sqM); Potassium 4.3 mmol/L (3.5-5.1); Sodium 145 mmol/L (137-145); Total Bilirubin 1.6 mg/dL (0.2-1.3); Total Protein 8.6 g/dL (6.3-8.2)
--- NOTE | 2017-07-13 10:33 | XR ---
EXAMINATION TYPE: XR KUB DATE OF EXAM: 07/13/2017 10:06 AM CLINICAL HISTORY: Abdominal pain not further specified. TECHNIQUE: 2 upright KUB images of the abdomen are obtained. COMPARISON: CT abdomen and pelvis study September 01, 2016. Chest x-ray with acute abdominal series May. FINDINGS: There is some paucity of bowel gas. Gas is seen in nondistended stomach. Gas is noted in no ndistended small and large bowel loops throughout the abdomen and pelvis. Right-sided ostomy is noted . Cholecystectomy clips are redemonstrated. Visualized lung bases are clear. No pneumoperitoneum is pre sent. 10 mm collecting system calculus mid to lower pole level left kidney is redemonstrated. Osseous structures are intact. IMPRESSION: Overall nonspecific strongly favor nonobstructive bowel gas pattern. There is redemonstration of a 10 mm left-sided renal calculus.
[2017-07-13] MEDS ORDERED: HYDROmorphone 1 MG/ML 1 ML SYRINGE IVP STA (11:12)
== END 2017-07-13 11:38 | disposition left against medical advice (07) ==
LOC: EC 08:54
DX: R10.9 Unspecified abdominal pain (principal); R11.2 Nausea with vomiting, unspecified; E78.5 Hyperlipidemia, unspecified; I10 Essential (primary) hypertension; Z87.891 Personal history of nicotine dependence; Z79.899 Other long term (current) drug therapy; Z91.040 Latex allergy status; Z90.49 Acquired absence of other specified parts of digestive tract; Z98.890 Other specified postprocedural states
CPT/HCPCS: 36415; 80053; 82150; 83605; 83690; 85025; 81001; 74000; 99284; 96374; 96375 ×2; 96361; J2060; J2405; J1170

== ENCOUNTER → 2018-04-08 | Outpatient (CLI) | payer MEDICARE ==
--- NOTE | 2018-04-09 09:53 | MM ---
Reason for exam: screening (asymptomatic). Last mammogram was performed 1 year and 3 months ago. History: Patient is postmenopausal and has history of other cancer at age 53. Physical Findings: A clinical breast exam by your physician is recommended on an annual basis and results should be correlated with mammographic findings. MG 3D Screening Mammo W/Cad Bilateral CC and MLO view(s) were taken. Prior study comparison: December 30, 2016, bilateral MG 3d screening mammo w/cad. December 03, 2015, bilateral MG 3d screening mammo w/cad. The breast tissue is heterogeneously dense. This may lower the sensitivity of mammography. Finding: There are typically benign vascular, round calcifications in both breasts. There is no discrete abnormality. Prominent vessel in the right breast is stable. ASSESSMENT: Benign, BI-RAD 2 RECOMMENDATION: Routine screening mammogram of both breasts in 1 year.
== END | disposition home or self-care (01) ==
LOC: RADMAMWWP 12:51
PROVIDERS: ATTEND General Practice
DX: Z12.31 Encounter for screening mammogram for malignant neoplasm of breast (principal)
CPT/HCPCS: 77063; 77067

== ENCOUNTER → 2019-09-13 | Outpatient (CLI) | payer MEDICARE ==
--- NOTE | 2019-09-15 09:56 | MM ---
Reason for exam: screening (asymptomatic). Last mammogram was performed 1 year and 5 months ago. History: Patient is postmenopausal and has history of other cancer at age 53. Physical Findings: A clinical breast exam by your physician is recommended on an annual basis and results should be correlated with mammographic findings. MG 3D Screening Mammo W/Cad Bilateral CC and MLO view(s) were taken. Prior study comparison: April 08, 2018, bilateral MG 3d screening mammo w/cad. December 30, 2016, bilateral MG 3d screening mammo w/cad. The breast tissue is heterogeneously dense. This may lower the sensitivity of mammography. There is no discrete abnormality. No significant changes when compared with prior studies. ASSESSMENT: Negative, BI-RAD 1 RECOMMENDATION: Routine screening mammogram of both breasts in 1 year.
== END | disposition home or self-care (01) ==
LOC: RADMAMWWP 15:21
PROVIDERS: ATTEND Family Medicine
DX: Z12.31 Encounter for screening mammogram for malignant neoplasm of breast (principal)
CPT/HCPCS: 77063; 77067

== ENCOUNTER → 2020-05-09 | Outpatient (CLI) | payer MEDICARE ==
[2020-05-09 14:28] LABS: Basophils # (A) 0.1 k/uL (0-0.2); Basophils % (A) 1 %; Eosinophils # (A) 0.1 k/uL (0-0.7); Eosinophils % (A) 1 %; HCT 44.8 % (34.0-46.0); HGB 13.2 gm/dL (11.4-16.0); Hypochromasia Marked; Lymphocytes % (A) 14 %; MCH 30.5 pg (25.0-35.0); MCHC 29.4 g/dL (31.0-37.0); MCV 103.6 fL (80.0-100.0); Macrocytosis Slight; Mean Platelet Volume 7.7; Monocytes # (A) 0.4 k/uL (0-1.0); Monocytes % (A) 6 %; Neutrophils # (A) 5.4 k/uL (1.3-7.7); Neutrophils % (A) 75 %; Platelet Count 263 k/uL (150-450); RBC 4.32 m/uL (3.80-5.40); RDW 13.6 % (11.5-15.5); WBC 7.2 k/uL (3.8-10.6)
[2020-05-09 20:45] LABS: Soybean IgE <0.10 kU/L
[2020-05-09 20:46] LABS: Peanut IgE <0.10 kU/L; Shrimp IgE <0.10 kU/L
[2020-05-09 21:52] LABS: Gliadin AB IgA, Deaminated NEGATIVE (NEGATIVE); Gliadin AB IgA, Unit 1.5 U/mL; Gliadin AB IgG, Deaminated NEGATIVE (NEGATIVE)
[2020-05-09 22:19] LABS: Codfish IgE <0.10 kU/L
[2020-05-09 22:20] LABS: Dermato. farinae IgE <0.10 kU/L; Dog Dander IgE <0.10 kU/L
[2020-05-09 22:21] LABS: Egg White IgE <0.10 kU/L
[2020-05-10 14:25] LABS: Almond IgE <0.10 kU/L (<0.10); Almond IgE Class CLASS 0
[2020-05-10 14:26] LABS: Pork IgE Class CLASS 0; Salmon IgE <0.10 kU/L (<0.10); Salmon IgE Class CLASS 0; Tuna IgE <0.10 kU/L (<0.10); Tuna IgE Class CLASS 0
[2020-05-10 14:27] LABS: Chicken IgE Class CLASS 0; Egg Yolk IgE Class CLASS 0
== END | disposition home or self-care (01) ==
LOC: LABWHC1 13:05
PROVIDERS: ATTEND Allergy & Immunology
DX: T78.3XXA Angioneurotic edema, initial encounter (principal); K52.9 Noninfective gastroenteritis and colitis, unspecified
CPT/HCPCS: 36415; 82784; 83516; 85025; 86003; 86160; 86161

== ENCOUNTER → 2020-06-05 | Outpatient (CLI) | payer MEDICARE ==
--- NOTE | 2020-06-05 09:57 | CT ---
EXAMINATION TYPE: CT urogram wo/w con DATE OF EXAM: 06/05/2020 HISTORY: renal stone CT DLP: 715.4mGycm Automated Exposure Control for Dose Reduction was Utilized. CONTRAST: CT scan of the abdomen and pelvis is performed without and with IV Contrast, patient injected with 10 0 mL of Isovue 300. COMPARISON: CT 09/01/2016, 06/29/2016 FINDINGS: LUNG BASES: No significant abnormality is appreciated. LIVER/GB: Patient is post cholecystectomy. No evident liver mass.. PANCREAS: No significant abnormality is seen. SPLEEN: No significant abnormality is seen. ADRENALS: No significant abnormality is seen. KIDNEYS: Right kidney somewhat atrophic, suspect the renal artery stenosis on the right, there are at heromatous changes at the origins of bilateral renal arteries. Cystic changes are present at the lowe r pole the left kidney, calcification in the midpole shows appearance of possible partial staghorn, t here may be obstruction of the infundibulum, there is cortical thinning at the inferior left kidney. Delayed imaging shows some excretion at the lower pole of the left kidney is some persisting cystic c hange. BOWEL: There is an ostomy in the right lower quadrant. Postop changes are noted to the small bowel. O stomy seen on prior exam is no longer seen. There is a luminal metallic density present within the si gmoid colon. Sigmoid colonic wall thickening is indeterminate, difficult to exclude a mucosal lesion, underlying colitis. UTERUS/ADNEXA: No gross abnormality seen. LYMPH NODES: No greater than 1cm abdominal or pelvic lymph nodes are appreciated. OSSEOUS STRUCTURES: No significant abnormality is seen. OTHER: No significant additional abnormality is seen. IMPRESSION: There are chronic changes involving left kidney, there may be caliectasis, partial stagho rn calculus with obstruction dating to 2015 and resulting parenchymal thinning. There is likely renal artery stenosis bilaterally resulting in atrophy of the right kidney compared to prior exam. Possibl e calyx foreign body within the sigmoid colon. Postop changes and additional findings above.
== END | disposition home or self-care (01) ==
LOC: RADCTMAIN 07:24
PROVIDERS: ATTEND Urology
DX: N20.0 Calculus of kidney (principal)
CPT/HCPCS: 74178; 74400; Q9967

== ENCOUNTER → 2020-06-06 | Outpatient (CLI) | payer MEDICARE ==
[2020-06-07 10:53] LABS: IgG Subclass 3 31.4 mg/dL (11.0-85.0); IgG Subclass 4 1.8 mg/dL (3.0-175.0)
== END | disposition home or self-care (01) ==
LOC: LABWHC1 14:20
PROVIDERS: ATTEND Allergy & Immunology
DX: D89.2 Hypergammaglobulinemia, unspecified (principal)
CPT/HCPCS: 36415; 82164; 82787; 85652; 86038

== ENCOUNTER → 2020-07-04 | Outpatient (CLI) | payer MEDICARE ==
[2020-07-04 11:07] LABS: Basophils # (A) 0.1 k/uL (0-0.2); Basophils % (A) 1 %; Eosinophils # (A) 0.2 k/uL (0-0.7); Eosinophils % (A) 2 %; HCT 43.3 % (34.0-46.0); HGB 13.5 gm/dL (11.4-16.0); Lymphocytes # (A) 1.6 k/uL (1.0-4.8); Lymphocytes % (A) 17 %; MCH 29.2 pg (25.0-35.0); MCHC 31.2 g/dL (31.0-37.0); Monocytes # (A) 0.4 k/uL (0-1.0); Monocytes % (A) 5 %; Neutrophils % (A) 74 %; Platelet Count 208 k/uL (150-450); RBC 4.63 m/uL (3.80-5.40); RDW 14.3 % (11.5-15.5); WBC 9.5 k/uL (3.8-10.6)
[2020-07-04 11:13] LABS: Appearance,Urine Clear (Clear); Bilirubin,Urine Negative (Negative); Blood,Urine Negative (Negative); Color,Urine Yellow; Glucose,Urine (UA) Negative (Negative); Ketones,Urine Negative (Negative); Leukocyte Esterase,Urine Moderate (Negative); MCV 93.5 fL (80.0-100.0); Mucus,Urine Rare /hpf; Nitrite,Urine Negative (Negative); PH, Urine 5.5 (5.0-8.0); Protein,Urine 1+ (Negative); Specific Gravity,Urine 1.017 (1.001-1.035); Squamous Epithelial Cell,Urine 2 /hpf (0-4); Urobilinogen,Urine <2.0 mg/dL (<2.0); WBC,Urine 10 /hpf (0-5)
[2020-07-04 11:30] LABS: Albumin 4.3 g/dL (3.5-5.0); Calcium 9.2 mg/dL (8.4-10.2); Potassium 3.4 mmol/L (3.5-5.1); Total Bilirubin 1.1 mg/dL (0.2-1.3); Total Protein 7.2 g/dL (6.3-8.2)
== END | disposition home or self-care (01) ==
LOC: LABPAT 09:53
PROVIDERS: ATTEND Otolaryngology
DX: Z01.818 Encounter for other preprocedural examination (principal); N20.0 Calculus of kidney; R31.29 Other microscopic hematuria; R22.0 Localized swelling, mass and lump, head
CPT/HCPCS: 36415; 80053; 81001; 85025; 86038; 86235; 86850; 86900; 86901; 87086

== ENCOUNTER → 2020-07-09 | Outpatient (CLI) | payer MEDICARE | END | disposition home or self-care (01) | LOC: LABPAT 12:12 | PROVIDERS: ATTEND Urology | DX: Z01.818 Encounter for other preprocedural examination (principal); N20.0 Calculus of kidney; R31.1 Benign essential microscopic hematuria | CPT/HCPCS: 93005 ==

== ENCOUNTER 2020-07-11 06:02 | Day surgery (SDC) | payer MEDICARE ==
[2020-07-05 10:40] VITALS: BMI 22.4
--- NOTE | 2020-07-10 19:32 | HP ---
HISTORY AND PHYSICAL DIAGNOSIS: Left renal stone, partial staghorn, with recurrent urine infection. PROCEDURE TO BE PERFORMED: Cysto, placement of ureteral catheter, percutaneous nephrostolithotomy. Alysha Marie is a 59-year-old female, patient of Dr. Castrejon, who has had recurrent urine infections. She has a partial staghorn calculus in the left kidney. Because of this, the question is whether the stone was infected and whether the infection will persist until we rid her of the stone. She was referred to me for evaluation for this problem. She was found to have the stone in the left mid to lower pole. She has flank pain and has had recurrent urine infections. We discussed the diagnosis and treatment options. We decided to proceed with a percutaneous nephrostolithotomy to completely rid her of her kidney stone and hopefully rid her of her infection. The risks and complications and alternatives have been discussed. Risks include infection, bleeding, pain, damage to the kidney, damage to the adjacent organs, loss of kidney, bleeding. Multiple procedures have been explained and understood and accepted. PAST HISTORY: ALLERGIES: LISINOPRIL. MEDICATIONS: Medications include colestipol, Humira, vitamin C and D, Davin, metoprolol, calcium. MEDICAL ILLNESSES: Medical issues include Crohn's disease and high blood pressure. She also has kidney stones. Surgical history is primarily related to her Crohn's disease. PHYSICAL EXAMINATION: On examination, she is a pleasant white female in no immediate distress. Her vital signs are stable. She is 115 pounds, blood pressure 114/72. HEENT exam is clear. Chest is clear to auscultation. Heart has no murmur or gallop. Abdomen is soft without mass or organomegaly. Extremities have no edema. Neurological examination is grossly intact. IMPRESSION: This patient has a left partial staghorn calculus and comes for a cysto, placement of ureteral catheter and left percutaneous nephrostolithotomy. MMODL / IJN: [id number] /
[~2020-07-11 06:02] MED LIST: AMPICILLIN 1,000 MG in SODIUM CHLORIDE 0.9% 50 ML IVPB ONE; DEXAMETHASONE SOD PHOSPHATE 10 MG/ML 1 ML VIAL IV ONE; GENTAMICIN 80 MG in SODIUM CHLORIDE 0.9% 100 ML IVPB ONE; HYDROmorphone 0.5 MG/0.5 ML SYRINGE IVP PRN; MIDAZOLAM 2 MG/2 ML VIAL IV PRN; ONDANSETRON 4 MG/2 ML VIAL IVP ONE; SCOPOLAMINE 1.5MG/72HR PATCH TRANSDERM ONE
[2020-07-11] MEDS ORDERED: ONDANSETRON 4 MG/2 ML VIAL ONE (07:01)
[2020-07-11] MEDS ORDERED: LIDOCAINE 1% (10MG/ML) FOR IV START INTRADERMA ONE (07:10)
[2020-07-11] MEDS: LACTATED RINGERS 1,000 ML IV SCH (07:11)
[2020-07-11] MEDS ORDERED: LIDOCAINE 1% INJ 10MG/ML (20 ML MDV) ONE (07:24)
[2020-07-11] MEDS ORDERED: SUCCINYLCHOLINE CHLORIDE 100 MG/5 ML SYR IV ONE (07:24)
[2020-07-11] MEDS ORDERED: MIDAZOLAM 2 MG/2 ML VIAL ONE (07:24)
[2020-07-11] MEDS ORDERED: fentaNYL (PF) 50 MCG/ML 2 ML AMP ONE (07:24)
[2020-07-11] MEDS ORDERED: HYDROmorphone (PF) 1 MG/ML ONE (07:24)
[2020-07-11] MEDS ORDERED: PROPOFOL 10 MG/ML 20 ML VIAL IV ONE (07:24)
[2020-07-11] MEDS ORDERED: IOPAMIDOL-370 50ML BTL MISCELLANE ONE (08:10)
[2020-07-11] MEDS ORDERED: LACTATED RINGERS 1,000 ML IV ONE (08:30)
[2020-07-11] MEDS ORDERED: MAG HYDROX/AL HYDROX/SIMETH 30 ML CUP PO PRN (09:46)
[2020-07-11] MEDS ORDERED: ACETAMINOPHEN TAB 325 MG TAB PO PRN (09:46)
[2020-07-11] MEDS ORDERED: ONDANSETRON 4 MG/2 ML VIAL IVP PRN (09:46)
[2020-07-11] MEDS ORDERED: NALOXONE 0.4 MG/ML 1 ML VIAL IV PRN (09:47)
--- NOTE | 2020-07-11 09:53 | P.OP ---
Date of Procedure: 07/11/20 Preoperative Diagnosis: Left renal calculus with obstruction and recurrent infection Postoperative Diagnosis: Same Procedure(s) Performed: Cystoscopy, placement of occluding balloon catheter left, 5-Peruvian, percutaneous nephrostomy (Dr. Villar), percutaneous nephrostolithotomy with laser, lisinopril 10 J nephrostomy Anesthesia: SILVERIO Surgeon: Jeff Mckeon Estimated Blood Loss (ml): 100 Pathology: other Condition: stable Disposition: PACU Indications for Procedure: The patient is 59. She has a partial staghorn calculus on the left. She has recurrent urinary infection due to obstruction of the collecting system and perhaps infected stone. She comes for percutaneous nephrostolithotomy left Description of Procedure: The patient is brought to the operating suite. She is given a general endotracheal anesthesia on the transport gurney. She's placed in a frog position with a sterile prep and drape. Cystoscopy identifies the left ureteral orifice which was intubated with a 5-Peruvian occluding balloon catheter passed up into the renal pelvis. This is secured to a 16-Peruvian [place] The patient was placed in a prone position with care to airways and extremities. Dr. Villar of radiology performed percutaneous access to a left upper pole c paulina. The track is dilated to 30-Peruvian. I introduced the rigid scope into the collecting system remove clot. The stone was not obviously seen as it is obstructing the major infundibula to the middle and upper pole calyces in the left kidney. I passed the flexible scope into the collecting system and identify this major infundibula with the stone emanating from within. With the 365 laser probe and 8 W of energy was broken into small pieces. Is a very old hard stone. The collecting system was completely blown out. I basket the large fragments and removed them from the kidney. At the end of the procedure the no remaining fragments. The infundibula is open. A 10 J nephrostomy tube was placed into the left kidney. The patient is awakened and returned to recovery room in good condition. The blood loss is approximately 100 mL. She tolerated the procedure well be admitted to the hospital postoperatively.
[2020-07-11] MEDS ORDERED: HYDROmorphone PCA 10 MG/50 ML BAG IV PRN (10:00)
[2020-07-11] MEDS: fentaNYL (PF) 50 MCG/ML 2 ML AMP IVP ONE ×4 (10:10→10:43)
--- NOTE | 2020-07-11 10:27 | XR ---
EXAMINATION TYPE: XR KUB DATE OF EXAM: 07/11/2020 6:13 AM CLINICAL HISTORY: Preoperative. Left sided kidney stone. TECHNIQUE: Supine images of the abdomen and pelvis were obtained COMPARISON: 07/13/[address] urogram 06/05/2020. FINDINGS: 11 mm staghorn appearing calculus of the left renal lower pole. Right upper quadrant surgic al clips. Nonspecific bowel gas pattern. No organomegaly. No large pneumoperitoneum given supine tech nique. Lung bases are clear. Osseous structures are intact. IMPRESSION: 11 mm staghorn calculus of the left renal lower pole.
[2020-07-11] MEDS: DEXTROSE 5%-0.45% NACL 1,000 ML IV SCH ×2 (11:22→20:00)
--- NOTE | 2020-07-11 12:54 | FL ---
EXAMINATION TYPE: FL Perc Nephrostomy New Access DATE OF EXAM: 07/11/2020 COMPARISON: CT urogram 05/28/2020 HISTORY: Hydronephrosis, ureteral obstruction with staghorn calculus. PROCEDURE: Informed consent obtained by Dr. Mckeon. Maximal barrier technique was utilized. The skin overlying the left kidney was localized using fluor oscopy and the overlying skin prepped and draped. Following placement of a ureteral occlusion balloon by the referring clinician, Dr. Mckeon, and instillation of air in the renal collecting system, a teri table lower pole posterior calyx was chosen. Skin agnes was made with a scalpel. Access was gained under fluoroscopy, with a 21-gauge needle to the left kidney. A 0.018 inch wire was advanced, howeve r would not pass the interpolar calculus. After the sterile instillation of air in the renal collect ing system, a suitable upper pole posterior calyx was chosen. Skin agnes was made with a scalpel. Acc ess was gained under fluoroscopy. A 0.018 inch wire was advanced into the renal collecting system and ureter. The access site was dilated , access site was upsized, safety wire deployed and subsequently a sheath was advanced into the renal pelvis following dilation with balloon along the tract. The pat ient underwent nephrolithotomy by the referring clinician. The patient remained in stable condition w ithout complication. The patient was discharged to observation in the care of anesthesia. Total fluoroscopy time: 4.08 minutes Total images obtained: 2 IMPRESSION: STATUS POST LEFT NEPHROSTOMY PLACEMENT FOR NEPHROLITHOTOMY WITH FLUOROSCOPIC GUIDANCE. THIS PROCEDUR E PERFORMED BY THE UNDERSIGNED.
[2020-07-11] MEDS ORDERED: SODIUM CHLORIDE 0.9% 500 ML 500 ML IV ONE (18:24)
[2020-07-11] MEDS: hydrALAZINE HCL 50 MG TAB PO SCH (20:00)
[2020-07-11] MEDS: METOPROLOL SUCCINATE (ER) 50 MG TAB.ER.24H PO SCH (20:02)
[2020-07-11] MEDS ORDERED: amLODIPine 5 MG TAB PO SCH (21:00)
[2020-07-12] MEDS: LACTATED RINGERS 1,000 ML IV SCH (02:49)
[2020-07-12] MEDS: DEXTROSE 5%-0.45% NACL 1,000 ML IV SCH (06:25)
[2020-07-12] MEDS: METOPROLOL SUCCINATE (ER) 50 MG TAB.ER.24H PO SCH (08:24)
[2020-07-12 08:31] VITALS: TEMP 98.4
[2020-07-12] MEDS ORDERED: LORATADINE 10 MG TAB PO SCH (09:00)
[2020-07-12] MEDS ORDERED: COLESTIPOL HCL PO SCH (09:00)
[2020-07-12] MEDS ORDERED: NITROFURANTOIN MONOHYD/M-CRYST 100 MG CAP PO SCH (09:00)
[2020-07-12] MEDS: hydrALAZINE HCL 50 MG TAB PO SCH (09:19)
[2020-07-12] MEDS: HYDROcodone/APAP 5-325MG 1 EACH TAB PO PRN ×2 (10:59→15:19)
[2020-07-12 12:31] VITALS: BP 165/82; PULSE 78; RESP 16
--- NOTE | 2020-07-12 17:38 | P.DS ---
Providers Attending physician: Jeff cMkeon Primary care physician: [facility] Course: Ms Marie is 59 yo female with hx of left sided renal stone, she underwent Left sided PCNL on 07/11/[address] Mckeon. Please see Op note dated 07/11 for surgery details. She was admitted to the floor post operatively. She had an uneventful post operative course. Her horne was removed on POD #1. She was discharged home on POD #1. At time of discharge she was ambulating, pain controlled and was t olerating a diet. She was discharged home with the nephrostomy tube Plan - Discharge Summary Discharge Rx Participant: No New Discharge Prescriptions: New Cephalexin [Keflex] 500 mg PO Q8HR #15 cap Hydrocodone/Acetaminophen [[place] 5-325] 1 each PO Q4HR PRN #10 tab PRN Reason: Pain No Action Metoprolol Succinate (ER) [Toprol XL] 50 mg PO BID Ascorbic Acid [Vitamin C] 1,000 mg PO DAILY Colestipol HCl 10 gm PO DAILY Magnesium 400 mg PO DAILY Cholecalciferol [Vitamin D3 (25 Mcg = 1000 Iu)] 4,000 unit PO DAILY Calcium Carbonate/Vitamin D3 [Calcium 250-D Tablet] 2 each PO DAILY Cetirizine HCl [Zyrtec] 10 mg PO BID amLODIPine [Norvasc] 5 mg PO DAILY Nitrofurantoin Macrocrystal [Nitrofurantoin] 100 mg PO DAILY hydrALAZINE HCL [Apresoline] 50 mg PO BID Adalimumab [Humira] 40 mg SQ Q14D Lysine HCl [l-Lysine] 1,000 mg PO DAILY Discharge Medication List Metoprolol Succinate (ER) [Toprol XL] 50 mg PO BID 06/29/16 [History] Ascorbic Acid [Vitamin C] 1,000 mg PO DAILY 01/15/17 [History] Colestipol HCl 10 gm PO DAILY 07/13/17 [History] Adalimumab [Humira] 40 mg SQ Q14D 07/05/20 [History] Calcium Carbonate/Vitamin D3 [Calcium 250-D Tablet] 2 each PO DAILY 07/05/20 [History] Cetirizine HCl [Zyrtec] 10 mg PO BID 07/05/20 [History] Cholecalciferol [Vitamin D3 (25 Mcg = 1000 Iu)] 4,000 unit PO DAILY 07/05/20 [History] Lysine HCl [l-Lysine] 1,000 mg PO DAILY 07/05/20 [History] Magnesium 400 mg PO DAILY 07/05/20 [History] Nitrofurantoin Macrocrystal [Nitrofurantoin] 100 mg PO DAILY 07/05/20 [History] amLODIPine [Norvasc] 5 mg PO DAILY 07/05/20 [History] hydrALAZINE HCL [Apresoline] 50 mg PO BID 07/05/20 [History] Cephalexin [Keflex] 500 mg PO Q8HR #15 cap 07/12/20 [Rx] Hydrocodone/Acetaminophen [[place] 5-325] 1 each PO Q4HR PRN #10 tab 07/12/20 [Rx] Follow up Appointment(s)/Referral(s): Jeff Mckeon MD [STAFF PHYSICIAN] - 1 Week ( AT 8:00AM) Patient Instructions/Handouts: Percutaneous Nephrolithotomy (DC), Nephrostomy Tube Care (DC) Activity/Diet/Wound Care/Special Instructions: Drink plenty of fluid You may see some blood in the urine and nephrostomy tube No heavy lifting or straining INSTRUCTED TO CALL FOR FEVER, INABILITY TO TOLERATE FLUIDS, PAIN NOT CONTROLLED BY MEDS, SATURATING OF DRESSING, NOT URINATING OR DECREASED SIGNIFICANT DECREASE IN DRAINAGE FROM NEPHROSTOMY BAG, ANY PROBLEMS OR CONCERNS. INSTRUCTED TO SPONGE BATH ONLY, TO KEEP DRESSING DRY AND INTACT. PT SHOWN STOP COCK AND WHICH WAY IT SHOULD BE TURNED TO KEEP FLOW OF URINE GOING. Discharge Disposition: HOME SELF-CARE
[2020-07-24] MEDS ORDERED: ADALIMUMAB 40 MG SQ SCH (09:00)
== END 2020-07-12 17:35 | disposition home or self-care (01) ==
LOC: OR 06:02 → 6PED 09:34 → OR 07-12 17:35
PROVIDERS: ATTEND Urology
DX: N20.0 Calculus of kidney (principal); N13.6 Pyonephrosis; N39.0 Urinary tract infection, site not specified; K50.90 Crohn's disease, unspecified, without complications; I10 Essential (primary) hypertension; E78.5 Hyperlipidemia, unspecified; K21.9 Gastro-esophageal reflux disease without esophagitis; Z86.69 Personal history of other diseases of the nervous system and sense organs; Z79.891 Long term (current) use of opiate analgesic; Z79.899 Other long term (current) drug therapy; Z88.8 Allergy status to other drugs, medicaments and biological substances
CPT/HCPCS: 84132; 82365; 50432; 74018; 50080; C1769 ×3; C1894; C1729; J1100; J2405; J3010; J1580; J0290; Q9967; J1170; 86850; 86900; 86901

== ENCOUNTER → 2020-09-20 | Outpatient (CLI) | payer MEDICARE ==
--- NOTE | 2020-09-20 14:33 | CT ---
EXAMINATION TYPE: CT urogram wo/w con DATE OF EXAM: 09/20/2020 HISTORY: Kidney stone CT DLP: 1817mGycm Automated Exposure Control for Dose Reduction was Utilized. CONTRAST: CT scan of the abdomen and pelvis is performed without and with IV Contrast, patient injected with 10 0 ml mL of Isovue 370. COMPARISON: CT urogram June 05, 2020 and older studies. FINDINGS: KUB: Redemonstration of asymmetric diminished size and cortical thinning to the right kidney. Once ag ain significant narrowing at origin of right renal artery is felt present. There is persistent 4 mm c alculus lower pole of the left kidney coronal image 80 and 2 smaller calculi mid to lower pole of the left kidney coronal image 75 and 76. Findings are improved from prior study. Postcontrast images manny w symmetric cortical medullary uptake similar to prior With delayed or absent excretion from the rig ht kidney. There is no hydronephrosis noted bilaterally. Visualized portions of both ureters show no suspicious mass or obstruction. No intraluminal mass or wall thickening in the bladder. LUNG BASES: New small nodules in the periphery of the right lower lobe measuring up to 9 mm in size a xial image 6. Follow-up advised. LIVER/GB: Punctate hypodense lesion central hepatic dome axial image 12 series 6 too small to further characterize presumed benign. Cholecystectomy clips noted. PANCREAS: No significant abnormality is seen. SPLEEN: Stable small splenule. ADRENALS: No significant abnormality is seen. KIDNEYS: No significant abnormality is seen. BOWEL: Persistent surgical change anterior middle abdominal bowel loop. Mild/moderate wall thickening involving the left and sigmoid colon and rectum redemonstrated. Improved wall thickening in the gregorio sverse colon. Patient has history of irritable bowel disease. UTERUS/ADNEXA: Anteverted uterus. Few scattered pelvic phleboliths redemonstrated. LYMPH NODES: No greater than 1cm abdominal or pelvic lymph nodes are appreciated. OSSEOUS STRUCTURES: No significant abnormality is seen. OTHER: No significant additional abnormality is seen. IMPRESSION: Interval improvement of calcific burden left kidney. Some residual left-sided renal calcu li are noted. No new concerning mass or calculi. No new hydronephrosis. Delayed or absent excretion r ight kidney redemonstrated.
== END | disposition home or self-care (01) ==
LOC: RADCTMAIN 13:06
PROVIDERS: ATTEND Urology
DX: N20.0 Calculus of kidney (principal); Z88.8 Allergy status to other drugs, medicaments and biological substances
CPT/HCPCS: 74178; 74400; Q9967

== ENCOUNTER → 2021-01-21 | Outpatient (CLI) | payer MEDICARE ==
--- NOTE | 2021-01-23 11:08 | MM ---
Reason for exam: screening (asymptomatic). Last mammogram was performed 1 year and 4 months ago. History: Patient is postmenopausal and has history of other cancer at age 53. Physical Findings: A clinical breast exam by your physician is recommended on an annual basis and results should be correlated with mammographic findings. MG 3D Screening Mammo W/Cad Bilateral CC and MLO view(s) were taken. Prior study comparison: September 13, 2019, bilateral MG 3d screening mammo w/cad. April 08, 2018, bilateral MG 3d screening mammo w/cad. The breast tissue is heterogeneously dense. This may lower the sensitivity of mammography. Focal asymmetry left outer middle CC view. This finding is changed when compared with previous exams. ASSESSMENT: Incomplete: need additional imaging evaluation, BI-RAD 0 RECOMMENDATION: Special view mammogram of the left breast. If lesion persists on supplemental views, image directed ultrasound is recommended. [facility] will attempt to contact patient to return for supplemental views and ultrasound if indicated.
== END ==
LOC: RADMAMWWP 13:56
PROVIDERS: ATTEND Family Medicine
DX: Z12.31 Encounter for screening mammogram for malignant neoplasm of breast (principal); Z78.0 Asymptomatic menopausal state
CPT/HCPCS: 77063; 77067

== ENCOUNTER → 2021-02-01 | Outpatient (CLI) | payer MEDICARE ==
--- NOTE | 2021-02-01 14:34 | MM ---
Reason for exam: additional evaluation requested from abnormal screening. Last mammogram was performed less than 1 month ago. History: Patient is postmenopausal and has history of other cancer at age 53. Physical Findings: Nurse did not find any significant physical abnormalities on exam. MG 3D Work Up W/Cad LT Spot compression CC and LM view(s) were taken of the left breast. Prior study comparison: January 21, 2021, bilateral MG 3d screening mammo w/cad. September 13, 2019, bilateral MG 3d screening mammo w/cad. The breast tissue is heterogeneously dense. This may lower the sensitivity of mammography. Benign calcifications. No significant new findings when compared with previous films. These results were verbally communicated with the patient and result sheet given to the patient on 02/01/21. ASSESSMENT: Probably benign, BI-RAD 3 RECOMMENDATION: Follow-up diagnostic mammogram of the left breast in 6 months.
== END | disposition home or self-care (01) ==
LOC: RADMAMWWP 13:33
PROVIDERS: ATTEND Family Medicine
DX: R92.8 Other abnormal and inconclusive findings on diagnostic imaging of breast (principal)
CPT/HCPCS: 77065; G0279; 77061

== ENCOUNTER → 2021-08-05 | Outpatient (CLI) | payer MEDICARE ==
--- NOTE | 2021-08-06 07:52 | CT ---
EXAMINATION TYPE: CT brain wo con DATE OF EXAM: 08/05/2021 HISTORY: Diplopia x [address] DLP: 1005 mGycm. Automated Exposure Control for Dose Reduction was Utilized. TECHNIQUE: CT scan of the head is performed without contrast. COMPARISON: None. FINDINGS: There is no acute intracranial hemorrhage or midline shift identified. There is symmetric mild prominence of the bilateral frontal lobes. No hydrocephalus. There is mild to moderate low-atte nuation in the periventricular white matter consistent with chronic small vessel ischemic change. 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 The globes a re intact and the visualized sinuses are clear. Suprasellar cistern is maintained. IMPRESSION: No acute intracranial hemorrhage or midline shift. There is mild diffuse bilateral fron marilia lobe atrophy and mild to moderate chronic small vessel ischemic change with old right sided infar ct all noted.
== END | disposition home or self-care (01) ==
LOC: RADCTMAIN 18:15
PROVIDERS: ATTEND Ophthalmology
DX: G31.9 Degenerative disease of nervous system, unspecified (principal); I67.82 Cerebral ischemia; I63.9 Cerebral infarction, unspecified
CPT/HCPCS: 70450

== ENCOUNTER → 2021-08-12 | Outpatient (CLI) | payer MEDICARE ==
--- NOTE | 2021-08-12 14:39 | MM ---
Reason for exam: follow-up at short interval from prior study. Last mammogram was performed 6 months ago. History: Patient is postmenopausal and has history of other cancer at age 53. Physical Findings: Nurse did not find any significant physical abnormalities on exam. MG 3D Diag Mammo W/Cad LT CC and MLO view(s) were taken of the left breast. Prior study comparison: February 01, 2021, left breast MG 3d work up w/cad LT. January 21, 2021, bilateral MG 3d screening mammo w/cad. September 13, 2019, bilateral MG 3d screening mammo w/cad. There are scattered fibroglandular densities. The previous lateral asymmetric density has not persisted. No significant new findings when compared with previous films. These results were verbally communicated with the patient and result sheet given to the patient on 08/12/21. ASSESSMENT: Benign, BI-RAD 2 RECOMMENDATION: Return to routine screening mammogram schedule for both breasts. Back on schedule.
== END ==
LOC: RADMAMWWP 13:31
PROVIDERS: ATTEND Family Medicine
DX: R92.8 Other abnormal and inconclusive findings on diagnostic imaging of breast (principal)
CPT/HCPCS: 77065; G0279; 77061

== ENCOUNTER → 2022-04-04 | Outpatient (CLI) | payer MEDICARE ==
--- NOTE | 2022-04-08 09:59 | MM ---
Reason for Exam: Screening (asymptomatic). Last mammogram was performed 1 year(s) and 2 month(s) ago. Patient History: Menarche at age 11. First Full-Term at age 25. Postmenopausal. Risk Values: Portia 5 year model risk: 1.7%. NCI Lifetime model risk: 7.7%. Film Views: Bilateral CC views were taken. Bilateral MLO views were taken. Prior Study Comparison: 01/21/2021 Bilateral Screening Mammogram, [facility]. 02/01/2021 Left Diagnostic Mammogram, [facility]. 08/12/2021 Left Diagnostic Mammogram, [facility]. Tissue Density: The breast tissue is heterogeneously dense. This may lower the sensitivity of mammography. Findings: Analyzed By CAD. There are benign-appearing vascular calcifications bilaterally redemonstrated. There are occasional scattered benign-appearing round calcifications bilaterally redemonstrated. There is no suspicious group of microcalcifications or new suspicious mass in either breast. Overall Assessment: Benign, BI-RAD 2 Management: Screening Mammogram of both breasts in 1 year. A clinical breast exam by your physician is recommended on an annual basis and results should be correlated with mammographic findings. Electronically signed and approved by: Manuel Proctor M.D.
== END | disposition home or self-care (01) ==
LOC: RADMAMWWP 13:33
PROVIDERS: ATTEND Family Medicine
DX: Z12.31 Encounter for screening mammogram for malignant neoplasm of breast (principal); Z78.0 Asymptomatic menopausal state
CPT/HCPCS: 77063; 77067

== ENCOUNTER → 2022-06-24 | Outpatient (CLI) | payer MEDICARE ==
[2022-06-24 23:18] LABS: Basophils # (A) 0.07 X 10*3/uL (0.00-0.10); Basophils % (A) 0.9 %; Eosinophils # (A) 0.25 X 10*3/uL (0.04-0.35); Eosinophils % (A) 3.3 %; HCT 41.7 % (37.2-46.3); HGB 13.3 g/dL (12.0-15.0); Immature Grans, Automated 0.4 %; Lymphocytes # (A) 1.89 X 10*3/uL (0.90-5.00); Lymphocytes % (A) 24.6 %; MCH 30.1 pg (27.0-32.0); MCHC 31.9 g/dL (32.0-37.0); MCV 94.3 fL (80.0-97.0); Mean Platelet Volume 11.2 fL (9.5-12.2); Monocytes # (A) 0.94 X 10*3/uL (0.20-1.00); Monocytes % (A) 12.2 %; NRBC Per 100 WBC 0 /100 WBCS (0.0-0.0); Neutrophils # (A) 4.51 X 10*3/uL (1.80-7.70); Neutrophils % (A) 58.6 %; Platelet Count 223 X 10*3/uL (140-440); RBC 4.42 X 10*6/uL (4.10-5.20); RDW 13.7 % (11.5-14.5); WBC 7.69 X 10*3/uL (4.50-10.00)
[2022-06-24 23:47] LABS: C Reactive Protein <0.30 mg/dL (0.00-0.80)
[2022-06-24 23:48] LABS: ALT 25 U/L (8-44); AST 24 U/L (13-35); African American GFR (CKD) 41.5 (60.0-200.0); Albumin 4.1 g/dL (3.8-4.9); Albumin/Globulin Ratio 1.52 (1.60-3.17); Alkaline Phosphatase 117 U/L (41-126); BUN/Creat Ratio 17.47 Ratio (12.00-20.00); Blood Urea Nitrogen 26.9 mg/dL (9.0-27.0); Calcium 9.3 mg/dL (8.7-10.3); Carbon Dioxide 15.4 mmol/L (20.0-27.5); Chloride 107 mmol/L (96-109); Globulin 2.7 g/dL (1.6-3.3); Glucose 82 mg/dL (70-110); Non-African American GFR(CKD) 35.8 (60.0-200.0); Potassium 4.5 mmol/L (3.5-5.5); Sodium 136 mmol/L (135-145); Total Protein 6.8 g/dL (6.2-8.2)
== END | disposition home or self-care (01) ==
LOC: LABWHC1 15:47
PROVIDERS: ATTEND Student in an Organized Health Care Education/Training Program
DX: K50.10 Crohn's disease of large intestine without complications (principal)
CPT/HCPCS: 36415; 80053; 82306; 82607; 83993; 85025; 86140; 86480

== ENCOUNTER → 2023-02-02 | Outpatient (CLI) | payer MEDICARE ==
[2023-02-02 18:57] LABS: African American GFR (CKD) 39.3 (60.0-200.0); Anion Gap 15.9 mmol/L (10.00-18.00); BUN/Creat Ratio 13.31 Ratio (12.00-20.00); Blood Urea Nitrogen 21.3 mg/dL (9.0-27.0); Calcium 9.5 mg/dL (8.7-10.3); Carbon Dioxide 19.1 mmol/L (20.0-27.5); Non-African American GFR(CKD) 33.9 (60.0-200.0); Potassium 4.2 mmol/L (3.5-5.5)
== END | disposition home or self-care (01) ==
LOC: LABWHC1 09:42
PROVIDERS: ATTEND Internal Medicine
DX: M81.0 Age-related osteoporosis without current pathological fracture (principal)
CPT/HCPCS: 36415; 80048

== ENCOUNTER → 2023-04-22 | Outpatient (CLI) | payer MEDICARE ==
--- NOTE | 2023-04-23 08:03 | MM ---
Reason for Exam: Screening (asymptomatic). Last mammogram was performed 1 year(s) and 1 month(s) ago. Patient History: Menarche at age 11. First Full-Term at age 25. Postmenopausal. Risk Values: Portia 5 year model risk: 1.7%. NCI Lifetime model risk: 7.4%. Prior Study Comparison: 02/01/2021 Left Diagnostic Mammogram, [facility]. 08/12/2021 Left Diagnostic Mammogram, [facility]. 04/04/2022 Bilateral MG 3D screening mammo w/cad, [facility]. Tissue Density: The breast tissue is heterogeneously dense. This may lower the sensitivity of mammography. Findings: Analyzed By CAD. There is no suspicious group of microcalcifications or new suspicious mass in either breast. Benign-appearing calcifications within both breasts. Overall Assessment: Benign, BI-RAD 2 Management: Screening Mammogram of both breasts in 1 year. A clinical breast exam by your physician is recommended on an annual basis and results should be correlated with mammographic findings. Note on Portia scores and lifetime risk: 1. A Portia score greater than 3% is considered moderate risk. If this is the case, consider specialist referral to assess eligibility for a risk reducing agent. If overall lifetime risk for the development of breast cancer is 20% or higher, the patient may qualify for future screening with alternating mammogram and breast MRI. Electronically signed and approved by: Bam Navarro D.O.
== END | disposition home or self-care (01) ==
LOC: RADMAMWWP 16:40
PROVIDERS: ATTEND Family Medicine
DX: Z12.31 Encounter for screening mammogram for malignant neoplasm of breast (principal); Z78.0 Asymptomatic menopausal state
CPT/HCPCS: 77063; 77067

== ENCOUNTER → 2024-04-25 | Outpatient (CLI) | payer MEDICARE ==
--- NOTE | 2024-04-25 22:55 | MM ---
Reason for Exam: Screening (asymptomatic). Last screening mammogram was performed 12 month(s) ago. Patient History: Menarche at age 11. First Full-Term at age 25. Postmenopausal. Risk Values: Portia 5 year model risk: 1.8%. NCI Lifetime model risk: 7.2%. Prior Study Comparison: 08/12/2021 Left Diagnostic Mammogram, [facility]. 04/04/2022 Bilateral MG 3D screening mammo w/cad, [facility]. 04/22/2023 Bilateral MG 3D screening mammo w/cad, [facility]. Tissue Density: There are scattered areas of fibroglandular density. Findings: Analyzed By CAD. The pattern is symmetrical. Stable focal asymmetries in the upper outer left mid breast. Benign-appearing calcifications present bilaterally. Large vascular structure is in the right breast present previously No suspicious groups of microcalcifications, spiculated or lobular masses, architectural distortion or other secondary signs of malignancy are mammographically apparent. Overall Assessment: Benign, BI-RAD 2 Management: Screening Mammogram of both breasts in 1 year. A negative mammogram report should not preclude additional follow up of suspicious palpable abnormalities. Patient should continue monthly self breast exam. A clinical breast exam by your physician is recommended on an annual basis and results should be correlated with mammographic findings. Note on Portia scores and lifetime risk: 1. A Portia score greater than 3% is considered moderate risk. If this is the case, consider specialist referral to assess eligibility for a risk reducing agent. 2. If overall lifetime risk for the development of breast cancer is 20% or higher, the patient may qualify for future screening with alternating mammogram and breast MRI. Electronically signed and approved by: Troy Alexander D.O. Radiologis
== END | disposition home or self-care (01) ==
LOC: RADMAMWWP 14:48
PROVIDERS: ATTEND Family Medicine
DX: Z12.31 Encounter for screening mammogram for malignant neoplasm of breast (principal); Z78.0 Asymptomatic menopausal state
CPT/HCPCS: 77063; 77067

== ENCOUNTER → 2024-04-25 | Outpatient (CLI) | payer MEDICARE | END | disposition home or self-care (01) | LOC: LABWHC1 14:51 | PROVIDERS: ATTEND Student in an Organized Health Care Education/Training Program | DX: K50.118 Crohn's disease of large intestine with other complication (principal) | CPT/HCPCS: 36415; 86480 ==